=== PATIENT | male | born 1995 | race Caucasian/White ===

== ENCOUNTER 2019-10-25 03:59 | Emergency (ER) | payer BC ==
[~2019-10-25] VITALS: Ht 182.9 cm; Wt 78.4 kg
[2019-10-25] MEDS ORDERED: KETOROLAC 30 MG/ML 1ML VIAL IV ONE (04:45)
[2019-10-25 04:48] LABS: BASO # 0.1 10^3/uL (0.0-0.2); EOS # 0.2 10^3/uL (0.0-0.5); EOS % 2.1 % (0.0-3.0); HEMATOCRIT 47.3 % (42.0-52.0); HEMOGLOBIN 15.8 g/dl (13.5-17.5); LYMPH # 2.9 10^3/uL (1.5-5.0); LYMPH % 39.1 % (24.0-44.0); MEAN CORPUSCULAR HEMOGLOBIN 30.8 pg (27.0-33.0); MEAN CORPUSCULAR HGB CONC 33.4 g/dl (32.0-36.5); MEAN CORPUSCULAR VOLUME 92.2 fl (80.0-96.0); MONO # 0.7 10^3/uL (0.0-0.8); MONO % 9.9 % (0.0-5.0); NEUTROPHILS # 3.5 10^3/uL (1.5-8.5); NEUTROPHILS % 47.8 % (36.0-66.0); PLATELET COUNT, AUTOMATED 240 10^3/uL (150-450); RED BLOOD COUNT 5.13 10^6/uL (4.30-6.10); WHITE BLOOD COUNT 7.3 10^3/uL (4.0-10.0)
[2019-10-25 05:24] LABS: ALBUMIN 4.4 GM/DL (3.2-5.2); BILIRUBIN,DIRECT 0.2 MG/DL (0.0-0.2); BILIRUBIN,TOTAL 0.8 MG/DL (0.2-1.0); TOTAL PROTEIN 7.6 GM/DL (6.4-8.2)
--- NOTE | 2019-10-25 05:37 | REPVR ---
PROCEDURE INFORMATION: Exam: US Abdomen, Limited; Right Upper Quadrant Exam date and time: 10/25/2019 5:05 AM Age: 24 years old Clinical indication: Abdominal pain; Epigastric; Additional info: Ruq pain TECHNIQUE: Imaging protocol: US abdomen. Real time ultrasound with image documentation. Limited exam focused on the right upper quadrant. COMPARISON: No relevant prior studies available. FINDINGS: Liver: The liver demonstrates no focal defects. Gallbladder: The gallbladder demonstrates no stones and no wall thickening measuring 3 mm. There is a negative sono Molina's sign. Common bile duct: The CBD measures 2 mm. Pancreas: The pancreas is normal. Right kidney: The right kidney measures 11.6 cm with no hydronephrosis. IMPRESSION: Negative right upper quadrant sonogram. Electronically signed by: Orville Madsen On 10/25/2019 05:37:36 AM
[2019-10-25] MEDS ORDERED: LEVS0.124 SL (06:28)
[2019-10-25 06:30] VITALS: BP 125/72
== END 2019-10-25 06:40 | disposition home or self-care (01) ==
LOC: M ED 03:59
DX: K80.50 Calculus of bile duct without cholangitis or cholecystitis without obstruction (principal); R11.10 Vomiting, unspecified; Z88.0 Allergy status to penicillin
CPT/HCPCS: 76705; 80047; 80076; 83690; 85025; 93041; 96374; 99284; J1885

== ENCOUNTER → 2019-12-06 | Outpatient (CLI) | payer BC ==
[~2019-12-06] MED LIST: LEVS0.124 SL
--- NOTE | 2019-12-16 09:48 | REP ---
HEPATOBILIARY SCAN WITH GALLBLADDER EJECTION FRACTION HISTORY: Right upper quadrant pain. TECHNIQUE: 6.6 mCi of Technetium-99m mebrofenin is injected and sequential 5 minute images are obtained for 60 minutes. At the 65 minute post injection jaimee, 8 ounces of Ensure was ingested and an additional 60 minutes of dynamic images was acquired with regions of interest plotted around the gallbladder. SCINTIGRAPHIC FINDINGS: The initial hepatocellular parenchymal uptake phase is normal and homogeneous. Intrahepatic, extrahepatic, and gallbladder uptake are first visualized at 10 minutes. Subsequent scans demonstrate normal washout from the liver parenchymal into the gallbladder. The small intestine is visualized on the initial post Ensure image. Gallbladder ejection fraction is 32%. Values greater than 35% are considered normal with this technique. IMPRESSION: * Mildly delayed biliary to bowel transit time. This is nonspecific. * Borderline low gallbladder ejection fraction (32%). MTDD
== END ==
LOC: M RAD 07:17
PROVIDERS: ATTEND Surgery
DX: R10.11 Right upper quadrant pain (principal)
CPT/HCPCS: 78227; A9537

== ENCOUNTER 2020-01-19 20:09 | Emergency (ER) | payer BC ==
[~2020-01-19] VITALS: Ht 182.9 cm; Wt 77.4 kg
[2020-01-19] MEDS ORDERED: OMEP-218 (20:28)
[2020-01-19] MEDS ORDERED: HYOS125TA (20:28)
[2020-01-19 21:55] LABS: BASO # 0.1 10^3/uL (0.0-0.2); BASO % 0.8 % (0.0-1.0); EOS # 0.1 10^3/uL (0.0-0.5); EOS % 1.3 % (0.0-3.0); LYMPH # 2.4 10^3/uL (1.5-5.0); LYMPH % 27.9 % (24.0-44.0); MEAN CORPUSCULAR HEMOGLOBIN 29.9 pg (27.0-33.0); MEAN CORPUSCULAR HGB CONC 32.7 g/dl (32.0-36.5); MEAN CORPUSCULAR VOLUME 91.6 fl (80.0-96.0); MONO # 0.7 10^3/uL (0.0-0.8); MONO % 7.5 % (0.0-5.0); NEUTROPHILS # 5.4 10^3/uL (1.5-8.5); NEUTROPHILS % 62.3 % (36.0-66.0); PLATELET COUNT, AUTOMATED 237 10^3/uL (150-450); RED BLOOD COUNT 5.35 10^6/uL (4.30-6.10); WHITE BLOOD COUNT 8.7 10^3/uL (4.0-10.0)
--- NOTE | 2020-01-19 22:17 | REPVR ---
PROCEDURE INFORMATION: Exam: US Abdomen, Limited; Right Upper Quadrant Exam date and time: 01/19/2020 10:02 PM Age: 24 years old Clinical indication: Abdominal pain; Colic; Additional info: Known HX of stones, worsening of pain TECHNIQUE: Imaging protocol: US abdomen. Real time ultrasound with image documentation. Limited exam focused on the right upper quadrant. COMPARISON: GALLBLADDER US 10/25/2019 5:05 AM FINDINGS: Liver: Unremarkable. Gallbladder: No gallstones. No gallbladder wall thickening or pericholecystic fluid. Negative sonographic Molina's sign, as per the performing deep tissue massage therapist. Common bile duct: No stones. No ductal dilatation. Pancreas: Unremarkable as visualized. Right kidney: No mass. No definite stones. No hydronephrosis. IMPRESSION: No acute sonographic findings. Electronically signed by: Cole Lo On 01/19/2020 22:17:13 PM
[2020-01-19 22:24] LABS: ALBUMIN 4.8 GM/DL (3.2-5.2); ALT/SGPT 33 U/L (12-78); BILIRUBIN,DIRECT 0.3 MG/DL (0.0-0.2); BLOOD UREA NITROGEN 11 MG/DL (7-18); CALCIUM LEVEL 9.9 MG/DL (8.5-10.1); CARBON DIOXIDE LEVEL 29 MEQ/L (21-32); CHLORIDE LEVEL 106 MEQ/L (98-107); CREATININE FOR GFR 0.99 MG/DL (0.70-1.30); GLOMERULAR FILTRATION RATE > 60.0 (>60); GLUCOSE, FASTING 91 MG/DL (70-100); LIPASE 89 U/L (73-393); POTASSIUM SERUM 4.3 MEQ/L (3.5-5.1); SODIUM LEVEL 139 MEQ/L (136-145); TOTAL PROTEIN 8.2 GM/DL (6.4-8.2)
[2020-01-19] MEDS ORDERED: KETO10TAB PO (23:04)
[2020-01-19 23:18] VITALS: BP 120/69
== END 2020-01-19 23:19 | disposition home or self-care (01) ==
LOC: M ED 20:09
DX: K80.50 Calculus of bile duct without cholangitis or cholecystitis without obstruction (principal); R11.0 Nausea; Z88.0 Allergy status to penicillin; Z79.899 Other long term (current) drug therapy

== ENCOUNTER → 2020-02-09 | Outpatient (CLI) | payer BC ==
[~2020-02-09] MED LIST changes: +ACET1TAB37 PO; +HYOS125TA; +KETO10TAB PO; +OMEP-218; +OMEP1CAP73 PO; +PROAAER10 INH
== END ==
LOC: M LABSMTC 10:35
PROVIDERS: ATTEND Anesthesiology
DX: Z11.59 Encounter for screening for other viral diseases (principal)

== ENCOUNTER 2020-02-14 12:25 | Day surgery (SDC) | payer BC ==
[~2020-02-14] VITALS: Ht 182.9 cm; Wt 70.4 kg
[~2020-02-14 12:25] MED LIST changes: +LIDOCAINE 1% MDV 20ML VIAL SQ PRN; +LR 1,000 ML IV ONE; +MIDAZOLAM INJ 2MG/2ML VIAL (J2250 PER 1MG) IV SCH
[2020-02-14] MEDS ORDERED: ePHEDrine SULFATE 25 MG/5 ML(5MG/ML) SYRINGE As Ordered ONE (12:34)
[2020-02-14] MEDS ORDERED: fentaNYL 250 MCG/5 ML INJECTION (J3010) As Ordered ONE (12:34)
[2020-02-14] MEDS ORDERED: MIDAZOLAM INJ 2MG/2ML VIAL (J2250 PER 1MG) As Ordered ONE ×2 (12:34→15:32)
[2020-02-14] MEDS ORDERED: PHENYLephrine HCL 500 MCG/5 ML (100MCG/ML) SYRINGE (J2370) As Ordered ONE (12:35)
[2020-02-14] MEDS ORDERED: ACETAMINOPHEN 1000MG 100ML IV BTL (OFIRMEV) (J0131 PER 10MG) As Ordered ONE (12:35)
[2020-02-14] MEDS ORDERED: dexameTHASONE 4 MG/ML 1ML VIAL (J1100 PER 1MG) As Ordered ONE (12:36)
[2020-02-14] MEDS ORDERED: ROCURONIUM BROMIDE 50 MG/5 ML VIAL As Ordered ONE (12:36)
[2020-02-14] MEDS ORDERED: LIDOCAINE 2% 100MG/5ML SDV (FOR ANES.) As Ordered ONE (12:36)
[2020-02-14] MEDS ORDERED: propofoL 200 MG/20 ML VIAL As Ordered ONE ×2 (12:36→14:30)
[2020-02-14] MEDS ORDERED: SUGAMMADEX SODIUM 500 MG/5 ML VIAL (BRIDION) As Ordered ONE (12:36)
[2020-02-14] MEDS ORDERED: ONDANSETRON 4MG/2ML VIAL As Ordered ONE ×2 (12:36→16:12)
[2020-02-14] MEDS ORDERED: HYOS125TA PO (12:47)
[2020-02-14] MEDS ORDERED: LIDOCAINE W/EPINEPHRINE 1% 20ML VIAL As Ordered ONE (13:51)
[2020-02-14] MEDS ORDERED: GLYCOPYRROLATE INJ 0.2 MG/ML 2 ML VIAL As Ordered ONE (15:00)
[2020-02-14] MEDS ORDERED: MEPERIDINE INJ 25 MG/ML VIAL (J2175) As Ordered ONE (15:15)
[2020-02-14] MEDS ORDERED: PERCOCET 5MG/325MG TAB As Ordered ONE (15:17)
[2020-02-14] MEDS ORDERED: fentaNYL 100 MCG/2 ML INJECTION (J3010) As Ordered ONE ×2 (15:17→15:32)
[2020-02-14] MEDS: MIDAZOLAM INJ 2MG/2ML VIAL (J2250 PER 1MG) IV SCH ×2 (15:35→15:40)
[2020-02-14] MEDS ORDERED: NORCO, ANEXSIA 5/325MG TABLET (HYDROcodone/ACETAMINOPHEN) PO PRN (16:30)
[2020-02-14] MEDS ORDERED: METOCLOPRAMIDE INJ 10MG/2ML VIAL (J2765 PER 1) IV PRN (16:30)
[2020-02-14] MEDS ORDERED: ONDANSETRON 4MG/2ML VIAL IV PRN (16:30)
[2020-02-14] MEDS ORDERED: fentaNYL 100 MCG/2 ML INJECTION (J3010) IV PRN (16:30)
[2020-02-14] MEDS ORDERED: MEPERIDINE INJ 25 MG/ML VIAL (J2175) IV PRN (16:30)
[2020-02-14] MEDS ORDERED: LR 1,000 ML IV SCH (16:30)
[2020-02-14] MEDS ORDERED: PERCOCET 5MG/325MG TAB PO PRN (16:30)
--- NOTE | 2020-02-14 17:46 | RO ---
OPERATIVE NOTE DATE OF OPERATION: 02/14/2020 PREOPERATIVE DIAGNOSIS: Biliary dyskinesia. POSTOPERATIVE DIAGNOSIS: Biliary dyskinesia. PROCEDURE: Robotic cholecystectomy. SURGEON: Rufino Christopher DO GASKET NOTCHER: Patricia Young ANESTHESIA: General ESTIMATED BLOOD LOSS: 5 ml COMPLICATIONS: None. INDICATION FOR PROCEDURE: The patient is a 24-year-old male who presents with persistent right upper quadrant pain that is worse after meals. He had a slightly abnormal HIDA scan, therefore admission to proceed with robotic cholecystectomy. Risks and benefits of the procedure are not limited to, but included bleeding, infection, hernia formation, damage to surrounding structures, need for further surgery were discussed in detail with the patient. Informed consent was obtained. Procedure was planned. DESCRIPTION OF PROCEDURE: The patient was brought back into operating room 7. After sufficient sedation, the abdomen was sterilely prepped and draped. Next time-out was done to confirm proper patient and proper procedure. Following that, 8 mm incision made in the left upper quadrant, Veress needle was inserted and the abdomen was insufflated to 50 mmHg. Veress needle was then removed and 8 mm Optiview port used to gain access to the abdomen. Once the abdomen was entered, 3 more ports were placed, one in the right upper quadrant. The fundus and gallbladder were then elevated up towards to the right shoulder. Cystic duct and cystic artery were carefully dissected free using combination blunt and sharp dissection. Once they were both clearly identified, they were both doubly clipped and cut. The gallbladder was then dissected free from the gallbladder fossa intact. Placed inside a 5 mm Endo Catch bag and brought out through the right lateral port site. The abdomen was then desufflated. Skin incision was closed with 4-0 Vicryl subcuticular suture. The abdomen was cleaned and dried. Steri-Strips, 4 x 4 and tape were applied.
[2020-02-14] MEDS ORDERED: SIMETHICONE 80 MG CHEW TAB PO ONE (18:00)
[2020-02-14 18:20] VITALS: BP 140/84
--- NOTE | 2020-02-17 20:26 | ECGEPIP ---
[facility] Test Date: 2020-02-14 Pat Name: GERMANIA CHERRY Department: Room: - Gender: Male Metal Inspector: : 1995 Requested By: Marvin Crook Order Number: [id number] Reading MD: Dwayne Christie Measurements Intervals [place] Rate: 79 P: 81 HI: 189 QRS: 84 QRSD: 93 T: 63 QT: 401 QTc: 461 Interpretive Statements SINUS RHYTHM WITH MARKED SINUS ARRHYTHMIA NONSPECIFIC T-WAVE ABNORMALITY No prior ECG available for comparison at the time of interpretation. Electronically Signed on 02-17-2020 20:25:51 EST by Dwayne Christie
== END 2020-02-14 18:55 | disposition home or self-care (01) ==
LOC: M SDC 12:25
PROVIDERS: ATTEND Surgery
DX: K82.8 Other specified diseases of gallbladder (principal); K21.9 Gastro-esophageal reflux disease without esophagitis; J45.909 Unspecified asthma, uncomplicated; F41.9 Anxiety disorder, unspecified; Z88.0 Allergy status to penicillin; Z79.899 Other long term (current) drug therapy
CPT/HCPCS: 47562; 88304; 93005; J0131; J1100; J2250; J2370; J2405; J3010; S2900

== ENCOUNTER → 2020-03-07 | Outpatient (REF) | payer BC ==
[~2020-03-07] MED LIST changes: +AZIT500T5 PO; +HYOS125TA PO; -LIDOCAINE 1% MDV 20ML VIAL SQ PRN; -LR 1,000 ML IV ONE; -MIDAZOLAM INJ 2MG/2ML VIAL (J2250 PER 1MG) IV SCH; +PROM25TA12 PO
== END ==
LOC: M WUC 19:28
PROVIDERS: ATTEND Physician Assistant
DX: J02.9 Acute pharyngitis, unspecified (principal)

== ENCOUNTER 2020-03-10 03:15 | Emergency (ER) | payer BC ==
[~2020-03-10] VITALS: Ht 182.9 cm; Wt 70.2 kg
[~2020-03-10 03:15] MED LIST changes: -AZIT500T5 PO; -PROM25TA12 PO
[2020-03-10] MEDS ORDERED: AZIT500T5 PO (03:22)
[2020-03-10 03:58] LABS: BASO # 0.1 10^3/uL (0.0-0.2); BASO % 0.8 % (0.0-1.0); EOS # 0.1 10^3/uL (0.0-0.5); EOS % 1.7 % (0.0-3.0); HEMATOCRIT 47.9 % (42.0-52.0); HEMOGLOBIN 15.7 g/dl (13.5-17.5); LYMPH # 2.1 10^3/uL (1.5-5.0); LYMPH % 34.6 % (24.0-44.0); MEAN CORPUSCULAR HEMOGLOBIN 29.8 pg (27.0-33.0); MEAN CORPUSCULAR HGB CONC 32.8 g/dl (32.0-36.5); MEAN CORPUSCULAR VOLUME 91.1 fl (80.0-96.0); MONO # 0.8 10^3/uL (0.0-0.8); MONO % 13.6 % (0.0-5.0); NEUTROPHILS # 2.9 10^3/uL (1.5-8.5); NEUTROPHILS % 49.1 % (36.0-66.0); PLATELET COUNT, AUTOMATED 170 10^3/uL (150-450); RED BLOOD COUNT 5.26 10^6/uL (4.30-6.10)
[2020-03-10 04:12] LABS: AMYLASE 53 U/L (25-115); BLOOD UREA NITROGEN 14 MG/DL (7-18); CARBON DIOXIDE LEVEL 28 MEQ/L (21-32); CHLORIDE LEVEL 106 MEQ/L (98-107); CREATININE FOR GFR 0.92 MG/DL (0.70-1.30); GLOMERULAR FILTRATION RATE > 60.0 (>60); GLUCOSE, FASTING 99 MG/DL (70-100); LIPASE 131 U/L (73-393); POTASSIUM SERUM 4.3 MEQ/L (3.5-5.1); SODIUM LEVEL 140 MEQ/L (136-145)
[2020-03-10] MEDS ORDERED: ISOVUE-370 76% 100ML VIAL As Ordered ONE (04:54)
[2020-03-10 05:03] LABS: ALT/SGPT 21 U/L (12-78); BILIRUBIN,DIRECT 0.2 MG/DL (0.0-0.2); BILIRUBIN,TOTAL 0.4 MG/DL (0.2-1.0); TOTAL PROTEIN 7.7 GM/DL (6.4-8.2)
--- NOTE | 2020-03-10 05:52 | REPVR ---
PROCEDURE INFORMATION: Exam: CT Abdomen And Pelvis With Contrast Exam date and time: 03/10/2020 4:49 AM Age: 24 years old Clinical indication: Abdominal pain; Localized; Right upper quadrant (ruq); Patient HX: Lesley x 3 weeks ago; Additional info: Ruq pain TECHNIQUE: Imaging protocol: Computed tomography of the abdomen and pelvis with intravenous contrast. Radiation optimization: All CT scans at this facility use at least one of these dose optimization techniques: automated exposure control; mA and/or kV adjustment per patient size (includes targeted exams where dose is matched to clinical indication); or iterative reconstruction. Contrast material: ISO; Contrast volume: 100 ml; Contrast route: INTRAVENOUS (IV); COMPARISON: GALLBLADDER US 01/19/2020 9:49 PM FINDINGS: Liver: Mild hepatomegaly. Focal fat in left hepatic lobe along falciform ligament fissure. Gallbladder and bile ducts: Status post cholecystectomy with trace fluid in the gallbladder fossa. Pancreas: Normal. No ductal dilation. Spleen: Normal. No splenomegaly. Adrenal glands: Normal. No mass. Kidneys and ureters: Normal. No hydronephrosis. Stomach and bowel: Mild nonspecific bowel wall thickening involving loops of small and large bowel. Under distension versus enterocolitis is considered. Appendix: No evidence of appendicitis. Intraperitoneal space: Trace free fluid in the pelvis. Vasculature: Unremarkable. No abdominal aortic aneurysm. Lymph nodes: Unremarkable. No enlarged lymph nodes. Urinary bladder: Unremarkable as visualized. Reproductive: Unremarkable as visualized. Bones/joints: Unremarkable. No acute fracture. Soft tissues: Fat containing umbilical hernia. IMPRESSION: Status post cholecystectomy with trace fluid in the gallbladder fossa and pelvis. Mild hepatomegaly. No bowel obstruction. Partially visualized normal appendix. Mild nonspecific bowel wall thickening involving loops of small and large bowel. Under distension versus enterocolitis is considered. Electronically signed by: Kennedy Cross On 03/10/2020 05:53:07 AM
[2020-03-10 05:58] LABS: MONO SCRN NEGATIVE (NEGATIVE)
[2020-03-10 06:08] LABS: RSV AMPLIFICATION NEGATIVE (NEGATIVE)
[2020-03-10] MEDS ORDERED: PROM25TA12 PO (06:57)
[2020-03-10 07:02] VITALS: BP 128/75
== END 2020-03-10 07:02 | disposition home or self-care (01) ==
LOC: M ED 03:15
DX: R10.11 Right upper quadrant pain (principal); J02.9 Acute pharyngitis, unspecified; K21.9 Gastro-esophageal reflux disease without esophagitis; Z88.0 Allergy status to penicillin; J30.89 Other allergic rhinitis; Z90.49 Acquired absence of other specified parts of digestive tract; Z98.890 Other specified postprocedural states; Z79.2 Long term (current) use of antibiotics
CPT/HCPCS: 36415; 74177; 80048; 80076; 81001; 82150; 83690; 85025; 86308; 87631; 87880; 99284; Q9967

== ENCOUNTER → 2021-05-03 | Outpatient (CLI) | payer BC ==
[~2021-05-03] MED LIST changes: +AZIT500T5 PO; +E-Z-GAS II EFFERVESCENT PACKET (SODIUM BICARB./CITRIC ACID/SIMETHICONE) As Ordered ONE; +E-Z-HD 98% w/w 340GM SUSP BTL As Ordered ONE; +E-Z-PAQUE 96% w/w SUSP 176GM BTL As Ordered ONE; +OMEP-173; -OMEP-218; +PROM25TA12 PO
== END ==
LOC: M RAD 09:08
PROVIDERS: ATTEND Family Medicine
DX: K21.9 Gastro-esophageal reflux disease without esophagitis (principal)

== ENCOUNTER 2021-07-01 20:49 | Emergency (ER) | payer BC ==
[~2021-07-01] VITALS: Ht 182.9 cm; Wt 74.4 kg
[~2021-07-01 20:49] MED LIST changes: -E-Z-GAS II EFFERVESCENT PACKET (SODIUM BICARB./CITRIC ACID/SIMETHICONE) As Ordered ONE; -E-Z-HD 98% w/w 340GM SUSP BTL As Ordered ONE; -E-Z-PAQUE 96% w/w SUSP 176GM BTL As Ordered ONE
[2021-07-01 20:50] VITALS: BP 131/82
[2021-07-01] MEDS ORDERED: FLUO20CA22 (20:58)
[2021-07-01] MEDS ORDERED: ESOM40CA35 (20:58)
[2021-07-01 22:45] LABS: BASO # 0.1 10^3/uL (0.0-0.2); BASO % 0.8 % (0.0-1.0); EOS # 0.1 10^3/uL (0.0-0.5); EOS % 1.4 % (0.0-3.0); HEMATOCRIT 47.8 % (42.0-52.0); HEMOGLOBIN 16.3 g/dl (13.5-17.5); LYMPH # 3.5 10^3/uL (1.5-5.0); LYMPH % 42.8 % (24.0-44.0); MEAN CORPUSCULAR HEMOGLOBIN 31.4 pg (27.0-33.0); MEAN CORPUSCULAR HGB CONC 34.1 g/dl (32.0-36.5); MEAN CORPUSCULAR VOLUME 92.1 fl (80.0-96.0); MONO # 0.6 10^3/uL (0.0-0.8); MONO % 7.6 % (2.0-8.0); NEUTROPHILS # 3.9 10^3/uL (1.5-8.5); NEUTROPHILS % 47.2 % (36.0-66.0); PLATELET COUNT, AUTOMATED 236 10^3/uL (150-450); RED BLOOD COUNT 5.19 10^6/uL (4.30-6.10); WHITE BLOOD COUNT 8.3 10^3/uL (4.0-10.0)
[2021-07-01 23:47] LABS: ALBUMIN 4.2 GM/DL (3.2-5.2); ALT/SGPT 37 U/L (12-78); BILIRUBIN,DIRECT 0.2 MG/DL (0.0-0.2); BILIRUBIN,TOTAL 0.6 MG/DL (0.2-1.0); BLOOD UREA NITROGEN 19 MG/DL (7-18); CALCIUM LEVEL 9.7 MG/DL (8.5-10.1); CARBON DIOXIDE LEVEL 28 MEQ/L (21-32); CHLORIDE LEVEL 105 MEQ/L (98-107); CREATININE FOR GFR 1.02 MG/DL (0.70-1.30); GLOMERULAR FILTRATION RATE > 60.0 (>60); GLUCOSE, FASTING 82 MG/DL (70-100); LIPASE 128 U/L (73-393); POTASSIUM SERUM 4.1 MEQ/L (3.5-5.1); SODIUM LEVEL 140 MEQ/L (136-145); TOTAL PROTEIN 7.4 GM/DL (6.4-8.2)
[2021-07-02] MEDS ORDERED: OMEP10CASR PO (00:28)
== END 2021-07-02 00:41 | disposition home or self-care (01) ==
LOC: M ED 20:49
DX: K21.9 Gastro-esophageal reflux disease without esophagitis (principal); R10.11 Right upper quadrant pain; F32.A Depression, unspecified; J45.990 Exercise induced bronchospasm; Z87.891 Personal history of nicotine dependence; Z88.1 Allergy status to other antibiotic agents; Z79.899 Other long term (current) drug therapy

== ENCOUNTER 2022-08-17 17:36 | Emergency (ER) | payer BC, SELFPAY ==
[~2022-08-17] VITALS: Ht 182.9 cm; Wt 82.3 kg
[2022-08-17 17:36] VITALS: BP 144/73; TEMP 97.9; O2SAT 99
[~2022-08-17 17:36] MED LIST changes: +ESOM40CA35; +FLUO20CA22; +OMEP10CASR PO
== END 2022-08-17 22:54 | disposition left against medical advice (07) ==
LOC: M ED 17:36
DX: R07.9 Chest pain, unspecified (principal); Z53.21 Procedure and treatment not carried out due to patient leaving prior to being seen by health care provider

== ENCOUNTER 2023-03-10 22:05 | Emergency (ER) | payer SELFPAY ==
[~2023-03-10] VITALS: Ht 182.9 cm; Wt 91.1 kg
[2023-03-10 22:06] VITALS: BP 131/82; TEMP 97.8; O2SAT 97
[2023-03-10] MEDS ORDERED: ZOLO25TA PO (22:15)
== END 2023-03-11 02:21 | disposition left against medical advice (07) ==
LOC: M ED 22:05
DX: Z53.21 Procedure and treatment not carried out due to patient leaving prior to being seen by health care provider (principal)

== ENCOUNTER 2023-12-07 22:58 | Inpatient (IN) | payer BC, SELFPAY ==
[~2023-12-07] VITALS: Ht 182.9 cm; Wt 90.9 kg
[~2023-12-07 22:58] MED LIST changes: +FLUO-365; -FLUO20CA22; +ZOLO25TA PO
[2023-12-07 23:25] LABS: HEMATOCRIT 47.7 % (42.0-52.0); HEMOGLOBIN 16.2 g/dl (13.5-17.5); MEAN CORPUSCULAR HEMOGLOBIN 30.2 pg (27.0-33.0); MEAN CORPUSCULAR VOLUME 88.8 fl (80.0-96.0); PLATELET COUNT, AUTOMATED 258 10^3/uL (150-450); RED BLOOD COUNT 5.37 10^6/uL (4.30-6.10); WHITE BLOOD COUNT 9.6 10^3/uL (4.0-10.0)
[2023-12-08 00:03] LABS: ETHYL ALCOHOL (ETHANOL) < 0.003 % (0.000-0.010)
[2023-12-08 00:04] LABS: SALICYLATE LEVEL < 3.0 MG/DL (<30)
[2023-12-08 00:05] LABS: ALBUMIN 4.3 G/DL (3.2-5.2); ALKALINE PHOSPHATASE 138 U/L (46-116); ALT/SGPT 28 U/L (7.0-40); AST/SGOT 22 U/L (<34); BILIRUBIN,DIRECT 0.2 MG/DL (<0.4); BILIRUBIN,TOTAL 0.6 MG/DL (0.3-1.2); BLOOD UREA NITROGEN 15 MG/DL (9-23); CALCIUM LEVEL 10.1 MG/DL (8.5-10.1); CARBON DIOXIDE LEVEL 24 MMOL/L (20-31); CHLORIDE LEVEL 107 MMOL/L (98-107); CREATININE FOR GFR 1.01 MG/DL (0.70-1.30); GLOMERULAR FILTRATION RATE > 60.0 (>60); GLUCOSE, FASTING 108 MG/DL (60-100); POTASSIUM SERUM 4.3 MMOL/L (3.5-5.1); SODIUM LEVEL 138 MMOL/L (136-145); TOTAL PROTEIN 7.7 G/DL (5.7-8.2)
[2023-12-08 00:07] LABS: THYROID STIMULATING HORMONE 2.174 uIU/ML (0.55-4.78)
[2023-12-08 00:13] LABS: AMPHETAMINES LEVEL URINE NEGATIVE (NEGATIVE); BARBITURATES URINE NEGATIVE (NEGATIVE); BENZODIAZEPINES URINE NEGATIVE (NEGATIVE); CANNABINOIDS URINE NEGATIVE (NEGATIVE); COCAINE METABOLITE URINE NEGATIVE (NEGATIVE); METHADONE URINE NEGATIVE (NEGATIVE); OPIATES URINE NEGATIVE (NEGATIVE); PHENCYCLIDINE URINE NEGATIVE (NEGATIVE)
[2023-12-08] MEDS ORDERED: diphenhydrAMINE 25MG CAP PO PRN (04:25)
[2023-12-08] MEDS ORDERED: ACETAMINOPHEN TAB 650MG DOSE (2X325MG) PO PRN (04:25)
[2023-12-08] MEDS ORDERED: MOM 30ML SUSPENSION UDC PO PRN (04:25)
[2023-12-08] MEDS ORDERED: MAALOX 30 ML SUSP *UDC PO PRN (04:25)
[2023-12-08] MEDS ORDERED: IBUPROFEN 400MG TAB PO PRN (04:25)
[2023-12-08 05:52] VITALS: BP 140/80; TEMP 97; O2SAT 98
[2023-12-08] MEDS: hydrOXYzine 50 MG TAB PO PRN (12:18)
[2023-12-08] MEDS ORDERED: VILO200C PO (15:21)
[2023-12-08] MEDS ORDERED: HOME MED LIST COMPLETE! XX SCH (15:25)
[2023-12-08] MEDS: traZODone 50 MG TAB PO PRN (20:42)
[2023-12-09 07:11] VITALS: BP 124/66; TEMP 97.4; O2SAT 98
[2023-12-09 15:06] VITALS: BP 122/73; TEMP 97.9; O2SAT 98
[2023-12-10 06:58] VITALS: BP 130/61; TEMP 98.2; O2SAT 98
[2023-12-10 15:37] VITALS: BP 144/76; TEMP 97.9; O2SAT 98
[2023-12-11 06:11] VITALS: BP 119/65; TEMP 97.2; O2SAT 100
[2023-12-11] MEDS ORDERED: [UNRECOGNIZED DRUG - OTHER] PO SCH (09:00)
[2023-12-11] MEDS ORDERED: HYDR50TA70 PO (09:08)
== END 2023-12-11 12:22 | disposition home or self-care (01) | DRG 754 ==
LOC: M ED 22:58 → M ED INP 12-08 04:21 → M PSY 12-08 05:19
PROVIDERS: ADMIT Psychiatry & Neurology Psychiatry; ATTEND Psychiatry & Neurology Psychiatry
DX: F32.A Depression, unspecified (principal); R45.851 Suicidal ideations; F41.9 Anxiety disorder, unspecified; K21.9 Gastro-esophageal reflux disease without esophagitis; F90.9 Attention-deficit hyperactivity disorder, unspecified type; R73.9 Hyperglycemia, unspecified; Z63.0 Problems in relationship with spouse or partner; Z56.2 Threat of job loss; Z90.49 Acquired absence of other specified parts of digestive tract; Z87.891 Personal history of nicotine dependence